=== PATIENT | female | born 1970 | race Caucasian/White ===

== ENCOUNTER 2023-01-12 14:00 | Outpatient (CLI) | payer OTHER | END 2023-01-12 23:59 | disposition home or self-care (01) | LOC: MLB 14:00 → EDSTATUS 01-14 12:20 | PROVIDERS: ATTEND Internal Medicine Gastroenterology | DX: Z01.812 Encounter for preprocedural laboratory examination (principal); Z20.822 Contact with and (suspected) exposure to COVID-19 ==